=== PATIENT | male | born 1960 | race African-American/Black ===

== ENCOUNTER 2025-09-24 21:34 | Inpatient (IN) | payer OTHER ==
[~2025-09-24] VITALS: Ht 170.2 cm; Wt 95.3 kg
[2025-09-24 21:37] VITALS: O2SAT 95
[2025-09-24 23:08] LABS: INR 1.1
[2025-09-24 23:11] LABS: BASOPHILS % 0.5 % (0.0-2.0); CREATININE 1.1 mg/dL (0.6-1.3); EOSINOPHILS % 0.4 % (0.0-5.0); HEMATOCRIT. 41.8 % (42.0-52.0); HEMOGLOBIN. 13.4 g/dL (14.0-18.0); LYMPHOCYTES % 16.7 % (20.0-50.0); MEAN PLATELET VOLUME 9.9 fl (7.4-10.4); MONOCYTES % 7.2 % (2.0-8.0); NEUTROPHILS % 75.2 % (40.0-76.0); PLATELET 217 x1000/uL (130-400); RED BLOOD CELL COUNT 5.07 mill/uL (4.7-6.1); RED CELL DISTRIBUTION WIDTH 14.5 % (11.6-14.6)
[2025-09-24 23:12] LABS: UREA NITROGEN BLOOD 14 mg/dL (9-23)
[2025-09-24 23:13] LABS: ASPARTATE AMINOTRANSFERASE 18 IU/L (<34)
[2025-09-24 23:14] LABS: BILIRUBIN DIRECT 0.1 mg/dL (<=3.0); BILIRUBIN TOTAL 0.3 mg/dL (0.1-1.0); PHOSPHORUS 2.8 mg/dL (2.5-4.9); PROTEIN TOTAL 7.2 g/dL (6.0-8.3)
[2025-09-24 23:16] LABS: TROPONIN I HIGH SENSITIVITY 62 ng/L (3.0-53)
[2025-09-24] MEDS: CLOPIDOGREL 75MG TABLET PO ONE (23:19)
[2025-09-24] MEDS: ATORVASTATIN CALCIUM 40MG TABLET PO SCH (23:19)
[2025-09-24] MEDS: ASPIRIN 81MG TABLET PO ONE (23:22)
[2025-09-24] MEDS: IOHEXOL-300 50 ML BOTTLE IV ONE (23:22)
[2025-09-24 23:24] LABS: CLARITY URINE CLEAR (CLEAR); COLOR URINE YELLOW (YELLOW); GLUCOSE URINE NEGATIVE (NEGATIVE); KETONES URINE NEGATIVE (NEGATIVE); LEUKOCYTE ESTERASE URINE NEGATIVE (NEGATIVE); NITRITE URINE NEGATIVE (NEGATIVE); OCCULT BLOOD URINE NEGATIVE (NEGATIVE); PH URINE 5.0 (4.5-8.0); PROTEIN URINE NEGATIVE (NEGATIVE); SPECIFIC GRAVITY URINE 1.054 (1.005-1.030); UROBILINOGEN URINE 0.2 E.U./dL (0.2-1.0)
[2025-09-24 23:58] LABS: *AMPHETAMINES SCREEN URINE NEGATIVE (NEGATIVE); *BARBITURATES SCREEN URINE NEGATIVE (NEGATIVE); *BENZODIAZEPINES SCREEN URINE NEGATIVE (NEGATIVE); *COCAINE SCREEN URINE NEGATIVE (NEGATIVE); METHADONE URINE SCREEN NEGATIVE (NEGATIVE); OPIATES URINE SCREEN NEGATIVE (NEGATIVE)
[2025-09-24 23:59] LABS: CANNABINOID URINE SCREEN NEGATIVE (NEGATIVE); ECSTASY MDMA SCREEN URINE NEGATIVE (NEGATIVE); PHENCYCLIDINE URINE SCREEN NEGATIVE (NEGATIVE)
[2025-09-25] MEDS: MAGNESIUM 2 G PREMIX 50 ML IV ONE (00:19)
[2025-09-25] MEDS: METOCLOPRAMIDE HCL 10MG/2ML VIAL IV ONE (00:20)
[2025-09-25 00:46] LABS: TROPONIN I HIGH SENSITIVITY 66 ng/L (3.0-53)
[2025-09-25 08:27] VITALS: BP 90/42; PULSE 78; RESP 22; TEMP 36.5848
[2025-09-25 08:55] VITALS: BP 103/63; PULSE 71; RESP 16; TEMP 37.1; O2SAT 94
[2025-09-25] MEDS: SODIUM CHLORIDE 0.9% 1,000 ML IV SCH (09:14)
[2025-09-25] MEDS: ASPIRIN 81MG TABLET PO SCH ×2 (09:14→09:30)
[2025-09-25] MEDS ORDERED: DEXTROSE 50% WATER 50ML SYRINGE IV PRN (09:30)
[2025-09-25] MEDS ORDERED: ONDANSETRON HCL 4MG/2ML INJ IV PRN (09:30)
[2025-09-25] MEDS: CLOPIDOGREL 75MG TABLET PO SCH ×2 (09:30→10:08)
[2025-09-25] MEDS ORDERED: ACETAMINOPHEN 325MG TABLET PO PRN (09:30)
[2025-09-25] MEDS: CEFTRIAXONE 1GM/50ML 50 ML IV SCH (10:40)
[2025-09-25] MEDS: BLOOD SUGAR DIAGNOSTIC STRIP TEST SCH (11:41)
[2025-09-25] MEDS: INSULIN LISPRO 100 UNITS/ML SUBCUT SCH (11:42)
[2025-09-25 12:00] VITALS: BP 95/63; PULSE 64; RESP 17; TEMP 36.8; O2SAT 100
[2025-09-25 13:02] LABS: TRIGLYCERIDE 32.0 mg/dL (0-150)
[2025-09-25 13:03] LABS: LDL CHOLESTEROL 76.0 mg/dL (5-100)
[2025-09-25 16:00] VITALS: BP 110/76; PULSE 59; RESP 14; TEMP 36.7; O2SAT 100
[2025-09-25 20:00] VITALS: BP 111/60; PULSE 60; RESP 17; TEMP 36.8; O2SAT 100
[2025-09-25] MEDS ORDERED: ATORVASTATIN CALCIUM 40MG TABLET PO SCH (21:00)
[2025-09-25] MEDS: ATORVASTATIN CALCIUM 40MG TABLET PO SCH (21:28)
[2025-09-25] MEDS: ENOXAPARIN 30MG/0.3ML SYR SUBCUT SCH (21:36)
[2025-09-26] VITALS: BP 123/60; PULSE 58; RESP 20; TEMP 36.8; O2SAT 98
[2025-09-26 04:00] VITALS: BP 111/99; PULSE 59; RESP 12; TEMP 36.7; O2SAT 98
[2025-09-26 06:07] LABS: BASOPHILS % 0.4 % (0.0-2.0); EOSINOPHILS % 0.7 % (0.0-5.0); HEMATOCRIT. 44.3 % (42.0-52.0); HEMOGLOBIN. 13.9 g/dL (14.0-18.0); LYMPHOCYTES % 25.7 % (20.0-50.0); MEAN PLATELET VOLUME 10.4 fl (7.4-10.4); MONOCYTES % 11.0 % (2.0-8.0); NEUTROPHILS % 62.2 % (40.0-76.0); PLATELET 201 x1000/uL (130-400); RED BLOOD CELL COUNT 5.34 mill/uL (4.7-6.1); RED CELL DISTRIBUTION WIDTH 14.6 % (11.6-14.6)
[2025-09-26 06:23] LABS: CREATININE 1.0 mg/dL (0.6-1.3); UREA NITROGEN BLOOD 14 mg/dL (9-23)
[2025-09-26 08:00] VITALS: BP 128/90; PULSE 60; RESP 11; TEMP 36.8; O2SAT 91
[2025-09-26] MEDS: PANTOPRAZOLE SODIUM 40 MG/VIAL IV SCH (08:56)
[2025-09-26] MEDS: METOPROLOL TARTRATE 5MG/5ML VIAL IV PRN (11:39)
[2025-09-26] MEDS: FUROSEMIDE 20MG/2ML VIAL IVP NR (11:40)
[2025-09-26 12:00] VITALS: BP 135/88; PULSE 79; RESP 16; TEMP 36.7; O2SAT 93
[2025-09-26] MEDS ORDERED: IOHEXOL-350 100 ML BOTTLE ONE (13:20)
[2025-09-26 16:00] VITALS: BP 110/77; PULSE 63; RESP 11; TEMP 36.6; O2SAT 94
[2025-09-26 20:00] VITALS: BP 115/88; PULSE 86; RESP 20; TEMP 36.8; O2SAT 99
[2025-09-26] MEDS: METOPROLOL TARTRATE 25MG TABLET PO SCH (21:09)
[2025-09-27] VITALS: BP 120/78; PULSE 64; RESP 18; TEMP 36.8; O2SAT 97
[2025-09-27 04:00] VITALS: BP 143/78; PULSE 69; RESP 15; TEMP 36.7; O2SAT 98
[2025-09-27 08:00] VITALS: BP 131/71; PULSE 63; RESP 15; TEMP 36.8; O2SAT 97
[2025-09-27] MEDS: FUROSEMIDE 40MG TABLET PO SCH (09:05)
[2025-09-27] MEDS: SPIRONOLACTONE 12.5MG TABLET PO SCH (09:06)
[2025-09-27 12:00] VITALS: BP 126/69; PULSE 126; RESP 9; TEMP 37.3; O2SAT 93
[2025-09-27 16:00] VITALS: BP 130/93; PULSE 59; RESP 15; TEMP 36.9; O2SAT 95
[2025-09-27 20:00] VITALS: BP 125/89; PULSE 60; RESP 28; TEMP 36.8; O2SAT 95
[2025-09-28] VITALS (7 sets, daily range): BP systolic 114–128; BP diastolic 1–84; PULSE 58–76; RESP 18–25; TEMP 36.4–36.8; O2SAT 93–98
== END 2025-09-28 17:07 | disposition short-term general hospital (02) | DRG 64 ==
LOC: ER 21:34 → 3WST 09-25 05:20 → EDBEDREQ 09-25 05:26 → EDBEDREQTM 09-25 05:26 → EDBEDREQDT 09-25 05:26 → ENRESERV 09-25 06:02
PROVIDERS: ADMIT Internal Medicine; ATTEND Internal Medicine
DX: I63.81 Other cerebral infarction due to occlusion or stenosis of small artery (principal); I21.4 Non-ST elevation (NSTEMI) myocardial infarction; I42.8 Other cardiomyopathies; I50.22 Chronic systolic (congestive) heart failure; I16.0 Hypertensive urgency; I65.1 Occlusion and stenosis of basilar artery; E66.9 Obesity, unspecified; D72.829 Elevated white blood cell count, unspecified; G62.9 Polyneuropathy, unspecified; R73.9 Hyperglycemia, unspecified; G51.0 Bell's palsy; I25.2 Old myocardial infarction; Z68.32 Body mass index [BMI] 32.0-32.9, adult
CPT/HCPCS: 36415; 70496; 70498; 70551; 71045; 75571; 80048; 80061; 80076; 80305; 80320; 81003; 82962; 83735; 83880; 84100; 84484; 85025; 85651; 93005; 93306; 97162; 97166; 99285; A4606; J0696; J1650; J1938; J2470; J2765; J3475; J3490; J7030; Q9967; G0480